=== PATIENT | female | born 2000 | race Two or more races ===

== ENCOUNTER 2024-11-23 20:07 | Emergency (ER) | payer OTHER ==
[~2024-11-23] VITALS: Ht 157.5 cm; Wt 67.1 kg
[2024-11-23] MEDS ORDERED: CEFTRIAXONE SODIUM 1,000 MG VIAL IM STA (21:35)
[2024-11-23] MEDS ORDERED: DIPHENHYDRAMINE HCL 50 MG/ML VIAL 1ML IM STA (21:35)
[2024-11-23] MEDS ORDERED: CEFTRIAXONE SODIUM 1,000 MG VIAL ONE (22:01)
[2024-11-23] MEDS ORDERED: DIPHENHYDRAMINE HCL 50 MG/ML VIAL 1ML ONE (22:01)
== END 2024-11-23 22:51 | disposition home or self-care (01) ==
LOC: ER 20:07
DX: T63.481A Toxic effect of venom of other arthropod, accidental (unintentional), initial encounter (principal); Y92.832 Beach as the place of occurrence of the external cause